=== PATIENT | female | born 1935 | race Caucasian/White ===

== ENCOUNTER 2021-10-14 13:30 | Emergency (ER) | payer MEDICARE ==
[~2021-10-14] VITALS: Ht 167.6 cm; Wt 63.5 kg
[~2021-10-14 13:30] MED LIST: AMOX1XR PO; AMOX500 PO; CITA20 PO; CRUTCH2 USE; CYCL10 PO; Carvedilol6.25 MG PO; ESOM20; HYDACE5 PO; HYDR1TAB94 PO; Hydrocodone-Ap1 EA23 PO; Invanz1 GM IV; Lovastatin10 MG PO; NAMENDA XR7 MG PO; NORT10 PO; NORT25 PO; Norco 7.5-3251 EACH PO; OMEP20ER PO; POTA8; POTA8 PO; POTCHL10ER PO; SERT50 PO; TRIHYD253A PO; WHEELCHAIR USE
[2021-10-14] MEDS ORDERED: TAMS.4ER (16:05)
[2021-10-14] MEDS ORDERED: Prinivil10 MG (16:05)
== END 2021-10-14 20:45 | disposition home or self-care (01) ==
LOC: ER 13:30
DX: S52.501A Unspecified fracture of the lower end of right radius, initial encounter for closed fracture (principal); J34.89 Other specified disorders of nose and nasal sinuses; M25.511 Pain in right shoulder; M25.531 Pain in right wrist; I10 Essential (primary) hypertension; F41.9 Anxiety disorder, unspecified; F32.A Depression, unspecified; Z87.891 Personal history of nicotine dependence; Z79.899 Other long term (current) drug therapy; W18.30XA Fall on same level, unspecified, initial encounter; Y92.9 Unspecified place or not applicable
CPT/HCPCS: 70450; 73030; 73110; 73502; J1885; J2060

== ENCOUNTER 2022-06-17 09:10 | Day surgery (SDC) | payer MEDICARE ==
[~2022-06-17 09:10] MED LIST changes: +Prinivil10 MG; +TAMS.4ER
--- NOTE | 2022-06-17 16:51 | NUR ---
06/17/22 Florence Roy PER REGISTRATION, PATIENT ARRIVED ABOUT 0920 AND CHECKED IN WITH REGISTRATION BUT A FEW MINUTES LATER CANCELLED THEIR PROCEDURE AND LEFT THE SURGERY CENTER ABOUT 0930. THIS PATIENT LEFT THE FACILITY BEFORE BEING CALLED BACK TO THE PRE-OPERATIVE AREA.
== END 2022-06-17 09:20 | disposition home or self-care (01) ==
LOC: ORSCSDS 09:10
DX: H25.11 Age-related nuclear cataract, right eye (principal); Z53.9 Procedure and treatment not carried out, unspecified reason
CPT/HCPCS: J2250; J3010; J3301; J7040

== ENCOUNTER 2024-12-03 20:56 | Inpatient (IN) | payer OTHER ==
[~2024-12-03] VITALS: Ht 170.2 cm; Wt 58.6 kg
[2024-12-03 21:17] LABS: BASOPHILS ABSOLUTE AUTO 0.07 K/mm3 (0.00-0.23); BASOPHILS PERCENT AUTO 1 % (0-2); EOSINOPHILS ABSOLUTE AUTO 0.09 K/mm3 (0.00-0.68); EOSINOPHILS PERCENT AUTO 1 % (0-6); Hematocrit 42.6 % (33.0-51.0); Hemoglobin 14.0 g/dL (11.5-16.0); IMMATURE GRAN ABSOLUTE AUTO 0.02 K/mm3 (0.00-0.10); IMMATURE GRAN PERCENT AUTO 0 % (0-1); LYMPHOCYTES ABSOLUTE AUTO 1.42 K/mm3 (0.84-5.20); LYMPHOCYTES PERCENT AUTO 19 % (21-46); MONOCYTES ABSOLUTE AUTO 0.46 K/mm3 (0.16-1.47); MONOCYTES PERCENT AUTO 6 % (4-13); Mean Corpuscular HGB Conc 32.9 g/dL (31.5-36.5); Mean Corpuscular Volume 90 fL (80-100); NEUTROPHILS ABSOLUTE AUTO 5.31 K/mm3 (1.96-9.15); NEUTROPHILS PERCENT AUTO 72 % (41-73); NRBC ABSOLUTE 0.00 K/mm3 (0.00-0.02); NRBC Auto 0.0 /100 WBC (0.0-0.2); Platelet Count 172 K/mm3 (150-400); RDW Coefficient Variation 14.6 % (11.7-14.2); RDW Standard Deviation 48.7 fL (35.1-46.3)
[2024-12-03 21:35] LABS: Alanine Aminotransfer (ALT/SGP 20.0 U/L (12-78); Albumin, Blood 3.3 g/dL (3.4-5.0); Albumin/Globulin Ratio 1.1 (0.8-1.8); Anion Gap 10.0 mmol/L (3-11); Aspartate Aminotrans (AST/SGOT 20.0 U/L (12-37); Bilirubin, Total 0.9 mg/dL (0.1-1.0); Blood Urea Nitrogen 29.0 mg/dL (8-24); CO2, Blood 20.0 mmol/L (21-32); Calcium, Blood 9.1 mg/dL (8.5-10.1); Chloride, Blood 112.0 mmol/L (98-108); Creatinine, Blood 0.79 mg/dL (0.40-1.00); Globulin, Blood 3.1 g/dL (2.2-4.0); Glucose, Blood 112.0 mg/dL (70-99); Magnesium, Blood 1.8 mg/dL (1.6-2.4); Potassium, Blood 4.2 mmol/L (3.5-5.5); Sodium, Blood 138.0 mmol/L (136-145); Total Protein, Blood 6.4 g/dL (6.4-8.2)
[2024-12-03 22:16] LABS: Thyroid Stimulating Hormone 1.96 uIU/mL (0.360-4.800)
[2024-12-04] MEDS ORDERED: Ondansetron HCl 2 MG / ML 2ML Vial IV PRN (01:20)
[2024-12-04] MEDS ORDERED: Mag Sulfate 1 GM/D5% 100ML 100 ML IV STA (01:34)
[2024-12-04 03:07] VITALS: BP 129/92
--- NOTE | 2024-12-04 04:25 | NUR ---
SHIFT SUMMARY PATIENT HAS NOT BEEN ON THE MEDICAL UNIT VERY LONG. SHE HAS ARRIVED FROM THE ED. PATIENT STATES SHE IS NOT IN ANY PAIN. NO CHEST PAIN AT THIS TIME. PATIENT IS ORIENTED X3. SHE IS FORGETFUL. CALL LIGHT WITHIN REACH. BED ALARM IS SET. SAFETY PRECAUTIONS ARE BEING MAINTAINED.
[2024-12-04 05:43] LABS: BASOPHILS ABSOLUTE AUTO 0.06 K/mm3 (0.00-0.23); BASOPHILS PERCENT AUTO 1 % (0-2); EOSINOPHILS ABSOLUTE AUTO 0.03 K/mm3 (0.00-0.68); EOSINOPHILS PERCENT AUTO 1 % (0-6); Hematocrit 43.6 % (33.0-51.0); Hemoglobin 14.3 g/dL (11.5-16.0); IMMATURE GRAN ABSOLUTE AUTO 0.03 K/mm3 (0.00-0.10); IMMATURE GRAN PERCENT AUTO 1 % (0-1); LYMPHOCYTES ABSOLUTE AUTO 1.13 K/mm3 (0.84-5.20); LYMPHOCYTES PERCENT AUTO 18 % (21-46); MONOCYTES ABSOLUTE AUTO 0.45 K/mm3 (0.16-1.47); MONOCYTES PERCENT AUTO 7 % (4-13); Mean Corpuscular HGB Conc 32.8 g/dL (31.5-36.5); Mean Corpuscular Volume 89 fL (80-100); NEUTROPHILS ABSOLUTE AUTO 4.57 K/mm3 (1.96-9.15); NEUTROPHILS PERCENT AUTO 73 % (41-73); NRBC ABSOLUTE 0.00 K/mm3 (0.00-0.02); NRBC Auto 0.0 /100 WBC (0.0-0.2); Platelet Count 173 K/mm3 (150-400); RDW Coefficient Variation 14.7 % (11.7-14.2); RDW Standard Deviation 47.8 fL (35.1-46.3)
[2024-12-04 06:15] LABS: Alanine Aminotransfer (ALT/SGP 22.0 U/L (12-78); Albumin, Blood 3.6 g/dL (3.4-5.0); Albumin/Globulin Ratio 1.2 (0.8-1.8); Anion Gap 11.0 mmol/L (3-11); Aspartate Aminotrans (AST/SGOT 18.0 U/L (12-37); Bilirubin, Total 0.8 mg/dL (0.1-1.0); Blood Urea Nitrogen 28.0 mg/dL (8-24); CHOL/HDL RATIO 1.7; CO2, Blood 23.0 mmol/L (21-32); Calcium, Blood 9.2 mg/dL (8.5-10.1); Chloride, Blood 108.0 mmol/L (98-108); Cholesterol 102 mg/dL (50-200); Creatinine, Blood 0.84 mg/dL (0.40-1.00); Globulin, Blood 3.0 g/dL (2.2-4.0); Glucose, Blood 121.0 mg/dL (70-99); HDL Cholesterol 60 mg/dL (>39); LDL/HDL RATIO 0.5; Low Density Lipoprotein Chol 29 mg/dL (0-110); Potassium, Blood 3.6 mmol/L (3.5-5.5); Sodium, Blood 138.0 mmol/L (136-145); Total Protein, Blood 6.6 g/dL (6.4-8.2); Triglycerides 67 mg/dL (30-160); Very Low Density Lipoprot Chol 13 mg/dL (6-32)
[2024-12-04 07:35] VITALS: BP 97/82
[2024-12-04 08:32] VITALS: BP 140/98
[2024-12-04] MEDS ORDERED: Enoxaparin 40 MG/0.4 ML SYR SC SCH (09:00)
--- NOTE | 2024-12-04 11:03 | NUR ---
[address] NIELSEN, CRACKLES BASES LUNGS. PER TELE RATE CHAGED TO AFIB. PT NAUSEATED, MIN EMESIS. DISCUSSED TELE. AND LACK OF HOME MED RECONCILLED. DR MANNING REVIEW. NO OTHER CONCERNS AT THIS TIME.
[2024-12-04] MEDS ORDERED: ACET325 PO (11:31)
[2024-12-04] MEDS ORDERED: ASPI81CH PO (11:32)
[2024-12-04] MEDS ORDERED: ATOR20 PO (11:32)
[2024-12-04] MEDS ORDERED: CILO100 PO (11:33)
--- NOTE | 2024-12-04 14:42 | NUR ---
SPOKE TO SON ON [place] THIS AM. PLACED TWO MEDS PLUS ASA AND TYLENOL IN MED REC. HE STATES NO OTHER MEDS WERE LOCATED AT HER HOUSE. WHEN SON IN ROOM LATER. HE STATES THINKS ALTHOUGH SHE STATES THE ORIGINAL MED LIST MIGHT BE FROM LATE , HE THINKS SHE MIGHT BE NISTAKEN, THEY MIGHT BE HERS AND SHE NOT TAKING. UPDATED DR NIELSEN. WILL BE ABLE TO DISCUSS WITH DR BEARDEN OR TOD KERN ON THURSDAY.
[2024-12-04 14:46] VITALS: BP 102/62
--- NOTE | 2024-12-04 16:28 | NUR ---
PT PLEASANT COOP TODAY. WE CANNOT FULLY BE SURE OF PT RX TAKEN OVER THE WEEKEND, RECOMMEND TO CALL ON THURSDAY. PT STATES ONLY TAKES MIN MEDS. SON VERIFIED, BUT STATES THINKS SHOULD BE ON MORE. SO WE ARE UNSURE. DISCUSSED WITH DR. NIELSEN. PT RESTING THIS AFTERNOON. NO OTHER NEW CONCERNS NOTED TODAY. BED IN LOW POSITION, CALL LITE IN REACH, CALLS APPROP
--- NOTE | 2024-12-04 18:44 | NUR ---
APPROX 1600 CONVERTED TO NSR AT 69. PT COMFORTABLE. APPROX 1800 PT WAS DRY HEAVING, TELE CALLED DROPPED TO 37 FOR ABOUT 1 MINUTE. PT QUIT HEAVING AND RATE BACK TO 80-90/ CALLED DR NIELSEN. FEELS LIKELY REALATED TO VAGAL AND DRY HEAVES. NO NEW ORDERS. 1830AGAIN DRY HEAVING DROPPED TO 38 FOR 1 BEAT. THEN RETURNED TO NORMAL PT STATES NOT FEELING NAUSEAOUS ANYMORE. ADMIN ZOFRAN.
[2024-12-04 19:38] VITALS: BP 122/80
[2024-12-05 00:23] VITALS: BP 103/64
[2024-12-05 05:31] VITALS: BP 101/67
--- NOTE | 2024-12-05 06:51 | NUR ---
SUMMARY ORIENTED, CALM AND COOPERATIVE. VSS ON O2 VIA NC 1LPM. TELE READ CONSISTENTLY AF AROUND 75 BPM, DENIES SICKNESS TONIGHT. HAD 1 EPISODE OF DESAT 85% FOR A SHORT PERIOD THEN INCREASED O2 TO 2LPM AND RESOLVED. DENIED ANY S/SX AND CONTINUED SLEEPING VERY WELL. TITRATED O2 BACK TO 1LPM.
[2024-12-05 07:02] LABS: Anion Gap 8.0 mmol/L (3-11); Blood Urea Nitrogen 29.0 mg/dL (8-24); CO2, Blood 29.0 mmol/L (21-32); Calcium, Blood 8.6 mg/dL (8.5-10.1); Chloride, Blood 106.0 mmol/L (98-108); Creatinine, Blood 1.0 mg/dL (0.40-1.00); Glucose, Blood 107.0 mg/dL (70-99); Potassium, Blood 3.2 mmol/L (3.5-5.5); Sodium, Blood 140.0 mmol/L (136-145)
[2024-12-05 07:39] VITALS: BP 117/63
[2024-12-05] MEDS ORDERED: NS 250 ML IV PRN (07:55)
[2024-12-05 15:47] VITALS: BP 125/87
--- NOTE | 2024-12-05 17:55 | NUR ---
SHIFT SUMMARY PT CONT LEVEL OF CARE. PT NOTED TO BE A&OX4 AND AX1 STAND PIVOT. PT RECIEVED POTASSIUM REPLACEMENT TODAY AND PO ROUTINE POTASSIUM STARTED PT POTASSIUM LEVEL NOTED TO BE 3.2 WITH AM LABS.
[2024-12-05 19:53] VITALS: BP 116/60
[2024-12-06] VITALS (8 sets, daily range): BP systolic 82–125; BP diastolic 56–79
[2024-12-06 05:47] LABS: Anion Gap 6.0 mmol/L (3-11); Blood Urea Nitrogen 30.0 mg/dL (8-24); CO2, Blood 33.0 mmol/L (21-32); Calcium, Blood 9.2 mg/dL (8.5-10.1); Chloride, Blood 103.0 mmol/L (98-108); Creatinine, Blood 1.04 mg/dL (0.40-1.00); Glucose, Blood 140.0 mg/dL (70-99); Potassium, Blood 3.6 mmol/L (3.5-5.5); Sodium, Blood 138.0 mmol/L (136-145)
--- NOTE | 2024-12-06 06:15 | NUR ---
Shift Summary Pt c/o of some mild chest pain around 0300. I called telemetry and pt did go into sinus barry in the mid 30's briefly after I called. I gave her PRN Tylenol and 1 hour later pain was completely resolved. No dizzyness, SoB. No other changes. Purewick in place for incont voids. Pt is AOX4, slept well t/o the night.
--- NOTE | 2024-12-06 18:14 | NUR ---
DAY SUMMARY PT A&OX3-4, FORGETFUL, HR HAS BEEN TOUCHING INTO 30'S THIS SHIFT (MD AWARE), TELE IS SB-SR 40'S-70'S MOSTLY, 1P ASSIST TO CHAIR (UP FOR SEVERAL HOURS THIS SHIFT, CURRENTLY NEEDING 0.5L O2 W/CURRENT O2 SAT=94% (CONT PULSE OX), PURWICK IN PLACE FOR STRICT I'S AND O'S, BEDRESTING AT THIS TIME, WILL CONT TO MONITOR.
[2024-12-07] VITALS (7 sets, daily range): BP systolic 96–118; BP diastolic 63–77
--- NOTE | 2024-12-07 04:33 | NUR ---
SUMMARY: PT IS AOX3-4. ABLE TO EXPRESS NEEDS. PT GOT PERIODS OF UNITERRUPTED REST OVERNIGHT. PM DOSE OF ENTRESTO WAS HELD DUE TO SOFT BLOOD PRESSURES. THIS WAS CLARIFIED WITH THE PROVIDER TO HOLD EVENING DOSE. PT ON PUREWICK. PT WAS PLACED ON FACE MASK 2L OVERNIGHT DUE TO MOUTH BREATHING. PULSE OX IN PLACE. CALL LIGHT WITHIN REACH AND BED IN LOW POSITION.
[2024-12-07 04:40] LABS: Anion Gap 7.0 mmol/L (3-11); Blood Urea Nitrogen 36.0 mg/dL (8-24); CO2, Blood 30.0 mmol/L (21-32); Calcium, Blood 8.8 mg/dL (8.5-10.1); Chloride, Blood 105.0 mmol/L (98-108); Creatinine, Blood 0.97 mg/dL (0.40-1.00); Glucose, Blood 125.0 mg/dL (70-99); Potassium, Blood 3.9 mmol/L (3.5-5.5); Sodium, Blood 138.0 mmol/L (136-145)
--- NOTE | 2024-12-07 15:16 | NUR ---
DAY SUMMARY PT A&OX3, FORGETFUL, REPORTS BEING TIRED THIS SHIFT, UP TO CHAIR BRIEFLY BEFORE REQ TO RETURN TO BED, MANY VISITORS THIS SHIFT, CAREGIVER (FRIEND) IN TODAY-EDUCATED ON NEW BP MED AND NEED FOR MONITORING BP'S BEFORE ADMINISTRATION. CG STATED SHE ALREADY MONITORS BP'S AND KEEPS A LOG, WILL SUBSTATION MAINTENANCE TECHNICIAN PT AT DISCHARGE AND BE PRESENT FOR DISCHARGE INSTRUCTIONS. BP & HR STABLE THIS SHIFT, REMAINS ON RA WHILE AWAKE, BEDRESTING AT THIS TIME W/VISITORS AT BEDSIDE, CALL LIGHT IN REACH, WILL CONT TO MONITOR.
[2024-12-08 02:56] VITALS: BP 118/88
--- NOTE | 2024-12-08 04:57 | NUR ---
NIGHT SUMMARY: PT AOX4. NO COMPLAINTS OVERNIGHT. ABLE TO GET PERIODS OF UNINTERRUPTED SLEEP. PUREWICK IN PLACE. BED IN LOW POSITION AND CALL LIGHT WITHIN REACH. PT REFUSING TO TURN OVERNIGHT, EDUCATION PROVIDED. ON ROOM AIR THROUGHOUT CELEBRITY CHEF ENTREPRENEUR MEDIA PERSONALITY.
[2024-12-08 05:38] LABS: Anion Gap 7.0 mmol/L (3-11); Blood Urea Nitrogen 39.0 mg/dL (8-24); CO2, Blood 30.0 mmol/L (21-32); Calcium, Blood 9.4 mg/dL (8.5-10.1); Chloride, Blood 104.0 mmol/L (98-108); Creatinine, Blood 0.96 mg/dL (0.40-1.00); Glucose, Blood 112.0 mg/dL (70-99); Potassium, Blood 3.8 mmol/L (3.5-5.5); Sodium, Blood 137.0 mmol/L (136-145)
[2024-12-08 07:52] VITALS: BP 115/88
[2024-12-08] MEDS ORDERED: Potassium Chloride 10 Meq Tablet SA PO SCH (09:00)
[2024-12-08] MEDS ORDERED: JARDIANCE10 MG PO (10:19)
[2024-12-08] MEDS ORDERED: ELIQUIS2.5 MG PO (10:19)
[2024-12-08] MEDS ORDERED: ENTRESTO 24 MG1 EACH PO (10:20)
[2024-12-08] MEDS ORDERED: POTA10T PO (10:20)
[2024-12-08] MEDS ORDERED: FURO40 PO (10:20)
[2024-12-08] MEDS ORDERED: METO25ER PO (10:20)
--- NOTE | 2024-12-08 14:08 | NUR ---
DISCHARGE REVIEWED DISCHARGE INSTRUCTIONS W/PATIENT AND COUSIN (CHRISTOPH), BOTH VERBALIZED UNDERSTANDING, IV & TELE REMOVED, PT TRANSPORTED VIA WHEELCHAIR TO DISCHARGE IN PRIVATE VEHICLE W/RESPONSIBLE LOGISTICS OFFICER @ 1400, ALL BELONGINGS SENT W/PATIENT.
== END 2024-12-08 14:00 | disposition home health service (06) | DRG 291 ==
LOC: ER 20:56 → MEDS 12-04 01:18
PROVIDERS: Emergency Medicine; Internal Medicine; ADMIT Student in an Organized Health Care Education/Training Program
DX: I11.0 Hypertensive heart disease with heart failure (principal); I50.41 Acute combined systolic (congestive) and diastolic (congestive) heart failure; J96.01 Acute respiratory failure with hypoxia; I48.0 Paroxysmal atrial fibrillation; I42.9 Cardiomyopathy, unspecified; I25.10 Atherosclerotic heart disease of native coronary artery without angina pectoris; E78.5 Hyperlipidemia, unspecified; Z66 Do not resuscitate; F03.A0 Unspecified dementia, mild, without behavioral disturbance, psychotic disturbance, mood disturbance, and anxiety; E87.6 Hypokalemia; Z88.0 Allergy status to penicillin; Z79.899 Other long term (current) drug therapy; Z79.82 Long term (current) use of aspirin; K21.9 Gastro-esophageal reflux disease without esophagitis; M81.0 Age-related osteoporosis without current pathological fracture; E03.9 Hypothyroidism, unspecified; Z90.710 Acquired absence of both cervix and uterus; Z90.721 Acquired absence of ovaries, unilateral; Z98.890 Other specified postprocedural states; Z87.891 Personal history of nicotine dependence
CPT/HCPCS: 36415; 71046; 71275; 74174; 80048; 80053; 80061; 83036; 83735; 83880; 84145; 84439; 84443; 84484; 85025; 85379; 93005; 93010; 93926; 94762; 96374; 97110; 97161; 97165; 97530; 99285-25; A9270; C8929; J1650; J1938; J2405; J3475; J3480; J7050; Q9957; Q9967